=== PATIENT | female | born 2000 | race Caucasian/White ===

== ENCOUNTER → 2019-05-21 08:45 | Outpatient (CLI) | payer BC, SELFPAY ==
--- NOTE | 2019-05-21 08:57 | MRI_ITS ---
STUDY: MR RIGHT HIP ARTHROGRAPHY REASON FOR EXAM: Anterior pain and groin pain. TECHNIQUE: Standardized fat and water weighted pulse sequences were obtained in all 3 orthogonal planes after intra-articular instillation of 0.08 mL of dilute Dotarem. COMPARISON: Fluoroscopic image from arthrogram obtained prior to the MRI. FINDINGS: Normal hip joint without articular joint space narrowing. Normal acetabulum. There are small tears of the superior labrum (T1 coronal images 8, 9) and anterosuperior labrum (ILIANA images 6, 7). There is a small femoral cam lesion (T1 coronal image 11). Otherwise, unremarkable proximal femur. Normal gluteus minimus, medius and iliopsoas tendons and distal insertions. There is no trochanteric, iliopsoas or iliopectineal bursitis. Normal superior and inferior pubic rami. Normal ischial tuberosity. Normal origin of the hamstring tendons. Normal visualized iliac wing, sacroiliac joint, and sacral ala. There is mild iatrogenic edema in the musculature anterior to the right hip. MRI/Lower Ext/Jt Only/W Contrast IMPRESSION: Small labral tears. 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 Electronically Signed: Velasquez Cristobal MD at 11:51 EST Tel , Service support ,
--- NOTE | 2019-05-21 09:26 | RAD_ITS ---
CLINICAL HISTORY: Female, 18 years old. Right hip pain. PROCEDURE: ARTHROGRAM - RIGHT HIP. CONSENT: The procedure as well as the benefits and possible complications including infection and bleeding were explained to the patient and informed consent was signed. FLUOROSCOPY TIME (if supplied): (48 seconds) minutes/seconds Injection Information: 8 cc of dilute MRI contrast Number of images obtained: 1 TECHNIQUE: (All elements of maximal sterile barrier technique followed, including US elements as applicable) The patient was in the supine position. The overlying skin was prepped and draped in the usual sterile fashion. Following local anesthetic application and under direct fluoroscopic guidance, a 22-gauge spinal needle was placed into the hip joint. 2 cc of Isovue 300 was injected for confirmation. Following this, 8 cc of dilute MRI contrast was injected. The patient tolerated the procedure well. RAD/Arthrogram Hip w/ MRI IMPRESSION: Right hip arthrogram for MRI examination. Electronically Signed: Jose Alfredo Hernandez, at 10:41 EST , Service support ,
== END ==
DX: R10.31 Right lower quadrant pain (principal); R10.32 Left lower quadrant pain; M25.551 Pain in right hip
CPT/HCPCS: 27093; 73722; 77002; A9575; Q9967